=== PATIENT | male | born 1995 | race African-American/Black ===

== ENCOUNTER 2019-06-11 11:15 | Emergency (ER) | payer OTHER ==
[~2019-06-11] VITALS: Ht 172.7 cm; Wt 64.0 kg
[~2019-06-11 11:15] MED LIST: CYCL10TA7 PO; HYDR-4011 PO; NAPR-985 PO
[2019-06-11 11:28] VITALS: BP 142/92; PULSE 82; RESP 16; Ht 172.7 cm; Wt 64.0 kg
== END 2019-06-11 14:40 | disposition home or self-care (01) ==
LOC: FTE 11:15
DX: M54.2 Cervicalgia (principal)
CPT/HCPCS: 72125; Z7502